=== PATIENT | male | born 1965 | race African-American/Black ===

== ENCOUNTER 2019-03-12 18:20 | Inpatient (IN) | payer OTHER ==
[2019-03-12 22:31] VITALS: BMI 30.1
--- NOTE | 2019-03-12 23:22 | HP ---
"CIWA Score - Admission Criteria [facility]ASAS Guidelines: Admission for Medically Managed Detox: Requires at least one of the followin. CIWA greater than 12 2. Seizures within the past 24 hours 3. Delirium tremens within the past 24 hours 4. Hallucinations within the past 24 hours 5. Acute intervention needed for co occurring medical disorder 6. Acute intervention needed for co occurring psychiatric disorder 7. Severe withdrawal that cannot be handled at a lower level of care (continued vomiting, continued diarrhea, abnormal vital signs) requiring intravenous medication and/or fluids 8. Admission ROS S - HPI Chief Complaint: Here for rehab. Allergies/Adverse Reactions: Allergies Allergy/AdvReac Type Severity Reaction Status Date / Time No Known Allergies Allergy Verified 03/12/19 22:41 History of Present Illness: Here for rehab. States uses crack/cocaine. States recently relapsed after 10 months of sobriety. Crack/Cocaine use began at age 20. Smokes. Denies Methamphetamine use, despite (+) U-tox. Denies hx seizures, blackouts or overdoses. Longest length of sobriety 1 year - 1989. PMHx: Cough MHHx: Past depression. Denies thoughts of harming self or others. Does not see a MH provider. Search Terms: Trell Steinberg, 1965 Search Date: 03/12/2019 11:25:36 PM The Drug Utilization Report below displays all of the controlled substance prescriptions, if any, that your patient has filled in the last twelve months. The information displayed on this report is compiled from pharmacy submissions to the Department, and accurately reflects the information as submitted by the pharmacies. This report was requested by: Diamond Hernández | Reference #: [id number] There are no results for the search terms that you entered. Exam Limitations: No Limitations - Ebola screening Have you traveled outside of the country in the last 21 days: No (N) Have you had contact with anyone from an Ebola affected area: No Have you been sick,other than usual withdrawal symptoms: No (Denies measle exposure) Do you have a fever: No - Review of Systems Constitutional: No Symptoms Reported EENT: reports: Blurred Vision Respiratory: reports: Cough (Cough x 3 weeks. Denies COB/CP.) Cardiac: reports: No Symptoms Reported GI: reports: No Symptoms Reported : reports: No Symptoms Reported Musculoskeletal: reports: No Symptoms Reported Integumentary: reports: Other (Athletes' foot) Neuro: reports: No Symptoms reported Endocrine: reports: No Symptoms Reported Hematology: reports: No Symptoms Reported Psychiatric: reports: Judgement Intact, Anxious, Disorientated (Missed date only ) Patient History - Patient Medical History Hx Asthma: No Hx Chronic Obstructive Pulmonary Disease (COPD): No Hx Cardiac Disorders: No Hx Hypertension: No Hx Seizures: No Hx Diabetes: No Hx Gastrointestinal Disorders: No Hx Genitourinary Disorders: No Hx Sexually Transmitted Disorders: No Hx Renal Disease (ESRD): No Hx Depression: Yes Hx Suicide Attempt: No Hx Schizophrenia: No - Patient Surgical History Past Surgical History: Yes Hx Neurologic Surgery: No Hx Cataract Extraction: No Hx Cardiac Surgery: No Hx Lung Surgery: No Hx Breast Surgery: No Hx Breast Biopsy: No Hx Abdominal Surgery: Yes (hernia repair) Hx Appendectomy: No Hx Cholecystectomy: No Hx Genitourinary Surgery: No Hx Section: No Hx Orthopedic Surgery: No Anesthesia Reaction: No - PPD History Previous Implant?: Yes Documented Results: Negative w/o proof Implanted On Prior R Admission?: No PPD to be Administered?: Yes - Smoking Cessation Smoking history: Current some day smoker Have you smoked in the past 12 months: Yes Aproximately how many cigarettes per day: 2 Hx Chewing Tobacco Use: No Initiated information on smoking cessation: Yes 'Breaking Loose' booklet given: 03/12/19 - Substance & Tx. History Hx Alcohol Use: No Hx Substance Use: Yes Substance Use Type: Cocaine Hx Substance Use Treatment: Yes (detox, rehab) - Substances abused Crack Substance route: Smoking Frequency: 3-6 times per week Amount used: $300 Age of first use: 15 Date of last use: 03/08/19 Admission Physical Exam BHS - Vital Signs Vital Signs: Vital Signs - 24 hr 03/12/19 03/12/19 03/12/19 22:29 22:36 22:57 Temperature 98.7 F 98.7 F 98.7 F Pulse Rate 130 H 130 H 130 H Respiratory 18 18 18 Rate Blood Pressure 104/66 104/66 104/66 - Physical General Appearance: Yes: No Apparent Distress, Nourished, Anxious HEENTM: Yes: EOMI (Jerking movements of eyes upon lateral gaze), Hearing grossly Normal, Normocephalic, Normal Voice, PHANI, Pharynx Normal Respiratory: Yes: Lungs Clear, Normal Breath Sounds, No Respiratory Distress, Other (Quiet, non-productive cough) Neck: Yes: No masses,lesions,Nodules, Supple Breast: Yes: Breast Exam Deferred Cardiology: Yes: Regular Rhythm, S1, S2, Tachycardia Abdominal: Yes: Non Tender, Soft, Increased Bowel Sounds Genitourinary: Yes: Within Normal Limits Back: Yes: Normal Inspection Musculoskeletal: Yes: full range of Motion, Gait Steady Extremities: Yes: Normal Capillary Refill, Normal Range of Motion, Non-Tender Neurological: Yes: machine fancy stitcher II-XII NML intact (Jerking movements of eyes upon lateral gaze), Alert, Motor Strength 5/5 Integumentary: Yes: Normal Color, Dry, Warm, Other (Cracks and dry skin between toes.) Lymphatic: Yes: Within Normal Limits - Diagnostic (1) Tachycardia Current Visit: Yes Status: Acute (2) Cocaine dependence, uncomplicated Current Visit: Yes Status: Chronic (3) Nicotine dependence, uncomplicated Current Visit: Yes Status: Chronic Qualifiers: Nicotine product type: cigarettes Qualified Code(s): F17.210 - Nicotine dependence, cigarettes, uncomplicated Comment: Minimal use (4) Cough Current Visit: Yes Status: Chronic Comment: Non- productive. w/o SOB Cleared for Admission BHS - Detox or Rehab Claeared for Rehab Admission: Yes Breathalyzer - Breathalyzer Breathalyzer: 0 Urine Drug Screen - Test Device Lot number: [id number] Expiration date: 10/26/20 - Control Is test valid?: Yes - Results Drug screen NEGATIVE: No Urine drug screen results: JUJU-Cocaine, MET-Methamphetamine Inpatient Rehab Admission - Rehab Decision to Admit Inpatient rehab admission?: Yes - Initial Determination Are CD services needed?: Yes Free of communicable disease: Yes Not in need of hospitalization: Yes - Rehab Admission Criteria Previous failed treatment: Yes Poor recovery environment: Yes Comorbidities: No Lacks judgement: No Patient is meeting Inpatient Rehab admission criteria:: Yes"
[2019-03-12] MEDS ORDERED: ACETAMINOPHEN 325 MG TABLET (FP) PO PRN (23:41)
[2019-03-12] MEDS ORDERED: IBUPROFEN 400 MG TABLET (FP) PO PRN (23:41)
[2019-03-12] MEDS ORDERED: LOPERAMIDE HCL 2 MG CAPSULE PO PRN (23:41)
[2019-03-12] MEDS ORDERED: MAGNESIUM CITRATE 300 ML BOTTLE PO PRN (23:41)
[2019-03-12] MEDS ORDERED: MAGNESIUM HYDROX 2400MG/30ML ORAL SUSPENSION 30 ML CUP PO PRN (23:41)
[2019-03-12] MEDS ORDERED: P-EPHED 60MG/TRIPROLIDI 2.5MG TABLET PO PRN (23:41)
[2019-03-12] MEDS ORDERED: MAG HYDROX/AL HYDROX/SIMETH 30 ML UNIT-DOSE CUP PO PRN (23:41)
[2019-03-13] MEDS: guaiFENesin 200 MG/10 ML 10 ML UNIT-DOSE CUPS PO SCH ×4 (00:42→21:45)
[2019-03-13] MEDS ORDERED: TUBERCULIN PPD 5 TU/0.1ML VIAL ID ONE (00:50)
[2019-03-13] MEDS: MENTHOL/PHENOL 1 EACH UD MM PRN ×2 (00:53→21:44)
[2019-03-13] MEDS: MELATONIN 5 MG TABLETS PO PRN (01:04)
[2019-03-13] MEDS: PRENATAL VITAMINS W/ FOLIC ACID TABLET (FP) PO SCH (10:52)
[2019-03-13] MEDS ORDERED: PNEUMOCOCCAL 23 VACCINE 0.5 ML VIAL IM ONE (12:00)
[2019-03-13] MEDS ORDERED: PNEUMOC 13-VAL CONJ-DIP CRM/PF 0.5 ML DISP.SYRIN IM ONE (12:00)
--- NOTE | 2019-03-13 12:25 | EKG ---
Test Reason : Blood Pressure : / mmHG Vent. Rate : 100 BPM Atrial Rate : 100 BPM P-R Int : 126 ms QRS Dur : 076 ms QT Int : 330 ms P-R-T Axes : 073 076 060 degrees QTc Int : 425 ms NORMAL SINUS RHYTHM EARLY REPOLARIZATION NORMAL ECG WHEN COMPARED WITH ECG OF 08-SEP-2006 10:39, VENT. RATE HAS INCREASED BY 35 BPM Confirmed by URSULA PANIAGUA, RUPAL ([id number]) on 03/13/2019 12:24:30 PM Referred By: Confirmed By:RPUAL VERGARA MD
[2019-03-13 12:53] LABS: ALBUMIN 3.8 g/dl (3.4-5.0); ALK PHOS 79 U/L (45-117); ANION GAP 7 MMOL/L (8-16); BILIRUBIN,TOTAL 0.5 mg/dL (0.2-1); BLOOD UREA NITROGEN 17 mg/dL (7-18); CALCIUM 9.1 mg/dL (8.5-10.1); CHLORIDE 103 mmol/L (98-107); CO2 27 mmol/L (21-32); CREATININE 1.3 mg/dL (0.55-1.3); GLUCOSE,RANDOM 183 mg/dL (74-106); POTASSIUM 4.3 mmol/L (3.5-5.1); SGOT/AST 16 U/L (15-37); SGPT/ALT 41 U/L (13-61); SODIUM 138 mmol/L (136-145); TOT PROT 7.6 g/dl (6.4-8.2)
[2019-03-13 13:35] LABS: HEMATOCRIT 45.6 % (35.4-49); HEMOGLOBIN 15.3 GM/dL (11.7-16.9); MCH 29.9 pg (25.7-33.7); MCHC 33.6 g/dl (32.0-35.9); MEAN PLT VOLUME 8.1 fl (7.5-11.1); PLATELET COUNT 262 K/MM3 (134-434); RBC 5.12 M/mm3 (4.00-5.60); RDW 13.6 % (11.9-15.9); WHITE BLOOD COUNT 4.8 K/mm3 (4.0-10.0)
[2019-03-13 16:18] LABS: URINE APPEARANCE CLOUDY; URINE BILIRUBIN NEGATIVE (NEGATIVE); URINE COLOR DK YELLOW; URINE GLUCOSE (UA) NEGATIVE (NEGATIVE); URINE KETONE TRACE (NEGATIVE); URINE LEUK ESTERASE NEGATIVE (NEGATIVE); URINE NITRITE NEGATIVE (NEGATIVE); URINE PROTEIN TRACE (NEGATIVE); URINE UROBILINOGEN 0.2 mg/dL (0.2-1.0)
[2019-03-13] MEDS: THIAMINE HCL 100 MG TABLET (FP) PO SCH (21:44)
[2019-03-14] MEDS: MENTHOL/PHENOL 1 EACH UD MM PRN ×3 (06:03→21:58)
[2019-03-14] MEDS: guaiFENesin 200 MG/10 ML 10 ML UNIT-DOSE CUPS PO SCH ×3 (06:03→21:57)
[2019-03-14] MEDS: PRENATAL VITAMINS W/ FOLIC ACID TABLET (FP) PO SCH (10:39)
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
[2019-03-14] MEDS: hydrOXYzine PAMOATE 50 MG CAPSULE (FP) PO PRN (15:08)
[2019-03-14] MEDS: THIAMINE HCL 100 MG TABLET (FP) PO SCH (21:58)
[2019-03-15] MEDS: MENTHOL/PHENOL 1 EACH UD MM PRN ×2 (06:46→10:38)
[2019-03-15] MEDS: metFORMIN HCL 500 MG TABLET (FP) PO SCH (06:46)
[2019-03-15] MEDS: hydrOXYzine PAMOATE 50 MG CAPSULE (FP) PO PRN (06:46)
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
[2019-03-15] MEDS ORDERED: metFORMIN HCL 500 MG TABLET (FP) PO SCH (10:00)
[2019-03-15] MEDS: PRENATAL VITAMINS W/ FOLIC ACID TABLET (FP) PO SCH (10:37)
[2019-03-15] MEDS ORDERED: guaiFENesin/D-METHORPHAN HB 10 ML UNIT-DOSE CUPS PO PRN (11:30)
[2019-03-15] MEDS: SERTRALINE HCL 50 MG TABLET (FP) PO SCH (14:27)
[2019-03-15] MEDS: ARIPiprazole 5 MG TABLET (FP) PO SCH (14:27)
[2019-03-15] MEDS: THIAMINE HCL 100 MG TABLET (FP) PO SCH (21:41)
[2019-03-15] MEDS: guaiFENesin/D-M SUGAR-FREE/ACLHOL-FREE 118 ML BOTTLE PO PRN (21:42)
[2019-03-16] MEDS: metFORMIN HCL 500 MG TABLET (FP) PO SCH (06:15)
[2019-03-16] MEDS: hydrOXYzine PAMOATE 50 MG CAPSULE (FP) PO PRN ×2 (06:15→22:18)
[2019-03-16] MEDS: SERTRALINE HCL 50 MG TABLET (FP) PO SCH (10:35)
[2019-03-16] MEDS: PRENATAL VITAMINS W/ FOLIC ACID TABLET (FP) PO SCH (10:35)
[2019-03-16] MEDS: ARIPiprazole 5 MG TABLET (FP) PO SCH (10:35)
[2019-03-16] MEDS: THIAMINE HCL 100 MG TABLET (FP) PO SCH (22:19)
[2019-03-17] MEDS: metFORMIN HCL 500 MG TABLET (FP) PO SCH (06:33)
[2019-03-17] MEDS: PRENATAL VITAMINS W/ FOLIC ACID TABLET (FP) PO SCH (10:38)
[2019-03-17] MEDS: ARIPiprazole 5 MG TABLET (FP) PO SCH (10:38)
[2019-03-17] MEDS: SERTRALINE HCL 50 MG TABLET (FP) PO SCH (10:38)
[2019-03-17] MEDS: hydrOXYzine PAMOATE 50 MG CAPSULE (FP) PO PRN ×2 (10:39→22:08)
[2019-03-17] MEDS: THIAMINE HCL 100 MG TABLET (FP) PO SCH (22:07)
[2019-03-18] MEDS: metFORMIN HCL 500 MG TABLET (FP) PO SCH (07:15)
[2019-03-18] MEDS: PRENATAL VITAMINS W/ FOLIC ACID TABLET (FP) PO SCH (10:55)
[2019-03-18] MEDS: SERTRALINE HCL 50 MG TABLET (FP) PO SCH (10:55)
[2019-03-18] MEDS: ARIPiprazole 5 MG TABLET (FP) PO SCH (10:55)
[2019-03-18] MEDS: hydrOXYzine PAMOATE 50 MG CAPSULE (FP) PO PRN (11:16)
[2019-03-18] MEDS: guaiFENesin/D-M SUGAR-FREE/ACLHOL-FREE 118 ML BOTTLE PO PRN (21:44)
[2019-03-18] MEDS: THIAMINE HCL 100 MG TABLET (FP) PO SCH (21:44)
[2019-03-18] MEDS: MELATONIN 5 MG TABLETS PO PRN (21:45)
[2019-03-19] MEDS: metFORMIN HCL 500 MG TABLET (FP) PO SCH (06:32)
[2019-03-19 06:40] VITALS: BP 117/61; PULSE 99; TEMP 98.1
[2019-03-19] MEDS: PRENATAL VITAMINS W/ FOLIC ACID TABLET (FP) PO SCH (11:09)
[2019-03-19] MEDS: hydrOXYzine PAMOATE 50 MG CAPSULE (FP) PO PRN (11:09)
[2019-03-19] MEDS: ARIPiprazole 5 MG TABLET (FP) PO SCH (11:09)
[2019-03-19] MEDS: SERTRALINE HCL 50 MG TABLET (FP) PO SCH (11:09)
--- NOTE | 2019-03-19 12:07 | PN ---
[facility] Progress Note Note: PT REQUESTING FOR EARLY DISCHARGE TODAY. PT MET WITH HIS COUNSELOR LAVERN MONTEJO AND HAS BEEN REFERRED TO [facility] ON [place], [place] FOR CD AFTERCARE. PT REPORTS HE WILL FOLLOW UP WITH PRIMARY CARE AT [facility] ON [address] AND [place], [place] SINCE HE HAS USED THE FACILITY IN THE PAST. [facility] RX ELECTRONICALLY SENT TO [facility] FOR CORRECTIONAL TREATMENT SPECIALIST. PT IS ALERT O X 3. DENIES S /H/I. Home Medications Medication Instructions Recorded RX: Aripiprazole [Abilify -] 5 mg PO DAILY #30 tablet 03/19/19 RX: Metformin HCl [Glucophage] 1 tab PO BID #60 tablet 03/19/19 RX: Sertraline HCl [Zoloft -] 50 mg PO DAILY #30 tablet 03/19/19 Vital Signs 03/19/19 06:39 Temperature 98.1 F Pulse Rate 99 H Respiratory 17 Rate Blood Pressure 117/61 Laboratory Tests 03/13/19 03/13/19 03/13/19 08:15 08:15 08:15 WBC 4.8 RBC 5.12 Hgb 15.3 Hct 45.6 MCV 89.0 MCH 29.9 MCHC 33.6 RDW 13.6 Plt Count 262 MPV 8.1 Sodium 138 Potassium 4.3 Chloride 103 Carbon Dioxide 27 Anion Gap 7 L BUN 17 Creatinine 1.3 Creat Clearance w eGFR 57.53 POC Glucometer Random Glucose 183 H Calcium 9.1 Total Bilirubin 0.5 AST 16 ALT 41 Alkaline Phosphatase 79 Total Protein 7.6 Albumin 3.8 Urine Color Urine Appearance Urine pH Ur Specific [place] Urine Protein Urine Glucose (UA) Urine Ketones Urine Blood Urine Nitrite Urine Bilirubin Urine Urobilinogen Ur Leukocyte Esterase RPR Titer Nonreactive 03/13/19 03/15/19 03/16/19 13:25 06:42 06:13 WBC RBC Hgb Hct MCV MCH MCHC RDW Plt Count MPV Sodium Potassium Chloride Carbon Dioxide Anion Gap BUN Creatinine Creat Clearance w eGFR POC Glucometer 114 134 Random Glucose Calcium Total Bilirubin AST ALT Alkaline Phosphatase Total Protein Albumin Urine Color Dk yellow Urine Appearance Cloudy Urine pH 5.0 Ur Specific [place] 1.039 H Urine Protein Trace Urine Glucose (UA) Negative Urine Ketones Trace H Urine Blood Negative Urine Nitrite Negative Urine Bilirubin Negative Urine Urobilinogen 0.2 Ur Leukocyte Esterase Negative RPR Titer 03/16/19 03/17/19 03/17/19 17:06 06:33 16:18 WBC RBC Hgb Hct MCV MCH MCHC RDW Plt Count MPV Sodium Potassium Chloride Carbon Dioxide Anion Gap BUN Creatinine Creat Clearance w eGFR POC Glucometer 123 145 121 Random Glucose Calcium Total Bilirubin AST ALT Alkaline Phosphatase Total Protein Albumin Urine Color Urine Appearance Urine pH Ur Specific [place] Urine Protein Urine Glucose (UA) Urine Ketones Urine Blood Urine Nitrite Urine Bilirubin Urine Urobilinogen Ur Leukocyte Esterase RPR Titer 03/18/19 03/19/19 05:51 06:25 WBC RBC Hgb Hct MCV MCH MCHC RDW Plt Count MPV Sodium Potassium Chloride Carbon Dioxide Anion Gap BUN Creatinine Creat Clearance w eGFR POC Glucometer 125 145 Random Glucose Calcium Total Bilirubin AST ALT Alkaline Phosphatase Total Protein Albumin Urine Color Urine Appearance Urine pH Ur Specific [place] Urine Protein Urine Glucose (UA) Urine Ketones Urine Blood Urine Nitrite Urine Bilirubin Urine Urobilinogen Ur Leukocyte Esterase RPR Titer NAD MEDICALLY STABLE PLAN:FOLLOW UP AT [facility] FOR CD AFTERCARE FOLLOW UP WITH [facility] WITHIN 1-2 WEEKS AFTER DISCHARGE.
--- NOTE | 2019-03-19 12:16 | PN ---
[facility] Progress Note Note: Patient is discharged today. Script for 30 days supply of medications(Zoloft 50 mg/d, Abilify 5 mg/d) [facility] [address] [place], [place] [id number]
== END 2019-03-19 13:35 | disposition home or self-care (01) | DRG 772 ==
LOC: YASAS 18:20 → Y5N 23:46
PROVIDERS: ADMIT Neuromusculoskeletal Medicine & OMM; ATTEND Neuromusculoskeletal Medicine & OMM
PROC: HZ42ZZZ Group Counseling for Substance Abuse Treatment, Cognitive-Behavioral (ICD-10-PCS; principal; 2019-03-12)
DX: F14.20 Cocaine dependence, uncomplicated (principal); F17.210 Nicotine dependence, cigarettes, uncomplicated; F31.81 Bipolar II disorder; F43.20 Adjustment disorder, unspecified; E11.9 Type 2 diabetes mellitus without complications; R05 Cough; R00.0 Tachycardia, unspecified; Z59.0 Homelessness
CPT/HCPCS: 36415; 71046-TC-FY; 80053; 81003; 82962; 85027; 86593; 90732; 93005; 93010; G0009